=== PATIENT | female | born 1935 | race Caucasian/White ===

== ENCOUNTER 2017-11-21 14:19 | Outpatient (RCR) | payer MEDICARE, MEDICAID ==
[2014-03-09 13:15] VITALS: Wt 84.8 kg
[2017-11-18 14:26] VITALS: BP 164/75
[2017-11-18 14:40] LABS: PLATELET COUNT, AUTOMATED 332 K/uL (150-450)
[~2017-11-21 14:19] MED LIST: ALEN70TA43 PO; CALC600T63 PO; CEPH500T7 PO; CHOL10005 PO; CHOL500045 PO; CYCL1DRO6 OP; HYDR-385 PO; IBAN150T3 PO; LETR2.5T4 PO; PNEI IJ; PNEI IM; PNEU0.5D3 IM; SIMV10TA98 PO; VALS1TAB2 PO
[2017-11-21 14:32] VITALS: BP 151/81
--- NOTE | 2017-11-22 09:40 | ONCOLOGY FOLLOW UP NOTE ---
EVENT DATE: November 21, 2017 DIAGNOSES 1. Left breast cancer. 2. Hypercholesterolemia. 3. Hypertension. 4. Osteopenia. 5. Vitamin D deficiency. CHIEF COMPLAINT The patient is here today for followup of her left breast cancer. ONCOLOGY HISTORY The patient is an 82-year-old postmenopausal woman. PRESENTATION Abnormal mammogram done on February 05, 2014 which showed irregular, shadowing nodule at 12 oclock position of the left breast. DIAGNOSTIC EVALUATION Ultrasound of the left breast done on February 05, 2014 did reveal multiple hypoechoic nodules with change in the nodule at 12 oclock of the left breast. PROCEDURES 1. 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 2. Left breast lumpectomy with left sentinel lymph node biopsy done on February. PATHOLOGY Positive for 0.6 cm diameter well differentiated invasive ductal carcinoma with negative margins. One out of four lymph nodes was positive for involvement of 1 mm. ER/MT positive, HER2/merry negative, by FISH. STAGE Stage IB (BT1B, pN1 mi, cM0.) TREATMENT The patient started adjuvant hormonal therapy with letrozole on March 12, 2014. HISTORY OF PRESENT ILLNESS Patient is here today for followup of her left breast cancer. She is doing fine currently and denies any complaint as usual. PAST MEDICAL HISTORY 1. Hypertension. 2. Hypercholesterolemia. PAST SURGICAL HISTORY 1. Total abdominal hysterectomy with bilateral salpingo-oophorectomy (BSO). 2. Cataract surgery bilaterally. 3. Left breast lumpectomy done on February 23, 2014. FAMILY HISTORY Sister had breast cancer in her 70s. Another sister with brain cancer. Brother with brain cancer. Nephew with metastatic lung cancer. Maternal aunt with breast cancer. SOCIAL HISTORY The patient is a . She has three daughters and one son. She denies any abuse of tobacco, alcohol or drugs. CURRENT MEDICATIONS 1. Calcium carbonate 600 mg tablet twice daily. 2. Letrozole 2.5 mg daily. 3. Valsartan/hydrochlorothiazide 80/12.5 mg once daily. 4. Simvastatin 10 mg at bedtime. 5. Vitamin D3 at 1000 IU daily. 6. Fosamax 70 mg weekly. 7. Restasis eyedrops two times daily. ALLERGIES TETANUS, WHICH CAUSE HIVES AND SWELLING. DIURETICS, WHICH CAN CAUSE COUGH. REVIEW OF SYSTEMS CONSTITUTIONAL: No appetite or weight change. No fever, chills or sweating. No recent infection. HEENT: Ears: No tinnitus or hearing problem. Nose: No nasal discharge or epistaxis. Throat: No sore throat or mouth ulcers. Eyes: No diplopia or visual changes. RESPIRATORY: No shortness of breath. Patient has some dry cough sometime. No expectoration or hemoptysis. CARDIOVASCULAR: No chest pain, orthopnea, or paroxysmal nocturnal dyspnea (PND) . No edema. No palpitations. GASTROINTESTINAL: No nausea or vomiting. No diarrhea or constipation. No change in bowel movements. No heartburn or swallowing difficulties. No abdominal pain. No jaundice. No hematemesis, melena or rectal bleeding. GENITOURINARY: Patient had urinary tract infection treated with antibiotic recently. MUSCULOSKELETAL: No pain in the muscles, joints or bones. NEUROLOGICAL: No tingling or numbness in the hands or feet. No headaches or convulsions. HEMATOLOGIC/LYMPHATIC: No bleeding or easy bruising. No weakness or fatigue. No enlarged lymph nodes. SKIN: No skin rash or lumps. PSYCHIATRIC: No anxiety or depression. PHYSICAL EXAMINATION GENERAL: Looks stable. Well-developed, well-nourished, and in no acute distress. VITAL SIGNS: Blood pressure 151/81, pulse 88 per minute, respirations 16 per minute, temperature 96.5. Pulse ox 93% on room air. HEENT: Head: Atraumatic. No sinus tenderness to palpation. Eyes: No icterus or conjunctivitis. Mouth and throat: No oral thrush or mucositis. NECK: Supple. No cervical or supraclavicular lymphadenopathy. LUNGS: Clear to auscultation and percussion bilaterally. HEART: Regular rate and rhythm. No gallops, murmurs, clicks or rubs. ABDOMEN: Soft and lax. No tenderness. No hepatosplenomegaly. No masses. EXTREMITIES: No cyanosis, clubbing or edema. LYMPHATICS: No peripheral lymphadenopathy. NEUROLOGICAL: Conscious, alert and oriented times three. No focal motor or sensory deficits. PSYCHIATRIC: Mood and affect appear normal. SKIN: No skin rash, bruise or purpuric eruption. DIAGNOSTIC DATA CBC showed a white count of 6.7, hemoglobin 14.4, hematocrit 41.5, platelets 332 ,000. Chem panel totally normal, except sodium 134 and potassium 3, chloride 97 , BUN 21. CA 27-29 is normal at 26. ASSESSMENT 1. Stage IB (pT1b pN1 darlene CM0) left breast invasive ductal carcinoma status post left breast lumpectomy with sentinel lymph node biopsy done February 23, 2014. Tumor was 6 mm well-differentiated invasive ductal carcinoma. One out of four lymph nodes came back positive for 1 mm involvement. ER/MT positive, HER2/ merry negative. Patient started adjuvant hormonal therapy with Letrozole 2.5 mg March 12, 2014. She is doing fine currently and she is totally asymptomatic. As she is nearly four years since her diagnosis, I am planning to see her now every six months. I will continue Letrozole 2.5 mg daily, and I will see her in four months with CBC, chem panel and CA 27-29. 2. Hypokalemia, most probably due to her blood pressure medication which contains hydrochlorothiazide. I am planning to put her on potassium chloride supplement 10 mEq daily, and I advised the patient to contact her primary care for adjustment. 3. Vitamin D deficiency on vitamin D supplement. 4. Osteopenia by DEXA scan, on Fosamax 70 mg weekly. 5. Hypertension, on treatment. PLAN 1. Letrozole 2.5 mg daily. 2. Potassium chloride 10 mEq daily. 3. Patient to contact her primary are, Sonya Moody to follow her potassium and blood pressure medication for adjustment. 4. Patient to return in six months with CBC, chem panel and CA 27-29. 5. Patient is to contact us for any new concerns or complaints. MTDD
[2017-11-27] MEDS ORDERED: POTA20TA10 PO (10:35)
== END 2017-12-11 14:27 | disposition home or self-care (01) ==
LOC: ONC 14:19
PROVIDERS: ATTEND Internal Medicine Hematology
DX: Z08 Encounter for follow-up examination after completed treatment for malignant neoplasm (principal); Z85.3 Personal history of malignant neoplasm of breast; E55.9 Vitamin D deficiency, unspecified; Z92.21 Personal history of antineoplastic chemotherapy; M85.80 Other specified disorders of bone density and structure, unspecified site; I10 Essential (primary) hypertension; E78.00 Pure hypercholesterolemia, unspecified; E87.6 Hypokalemia
CPT/HCPCS: 36415; 85025; 86300; G0463; 82040; 82247; 82310; 82374; 82435; 82565; 82947; 84075; 84132; 84155; 84295; 84450; 84460; 84520; 99212

== ENCOUNTER → 2017-12-11 | Outpatient (CLI) | payer MEDICARE, MEDICAID ==
[2014-03-09 13:15] VITALS: BMI 29.2
[~2017-12-11] MED LIST changes: +POTA20TA10 PO
== END ==
LOC: LAB 09:54
PROVIDERS: ATTEND Nurse Practitioner Family
DX: I10 Essential (primary) hypertension (principal)
CPT/HCPCS: 36415; 82310; 82374; 82435; 82565; 82947; 84132; 84295; 84520

== ENCOUNTER → 2018-01-16 | Outpatient (CLI) | payer MEDICARE, MEDICAID ==
[2014-03-09 13:15] VITALS: BMI 29.2
[~2018-01-16] MED LIST changes: +VALS160T7 PO
[2018-01-16 16:00] LABS: LDL CHOLESTEROL 53 mg/dl
== END ==
LOC: LAB 14:33
PROVIDERS: ATTEND Nurse Practitioner Family
DX: I10 Essential (primary) hypertension (principal); E78.5 Hyperlipidemia, unspecified
CPT/HCPCS: 36415; 82040; 82247; 82310; 82374; 82435; 82465; 82565; 82947; 83718; 84075; 84132; 84155; 84295; 84443; 84450; 84460; 84478; 84520

== ENCOUNTER 2018-05-30 14:26 | Outpatient (RCR) | payer MEDICARE, MEDICAID ==
[2014-03-09 13:15] VITALS: Wt 83.1 kg
[2018-05-23 14:31] VITALS: BP 164/71
[2018-05-23 15:00] LABS: PLATELET COUNT, AUTOMATED 289 K/uL (150-450)
[~2018-05-30 14:26] MED LIST changes: +LOSA50TA74 PO; -VALS160T7 PO; +VALS160T8 PO
[2018-05-30 14:34] VITALS: BP 181/94
--- NOTE | 2018-05-30 18:21 | ONCOLOGY FOLLOW UP NOTE ---
EVENT DATE: May 30, 2018 DIAGNOSES 1. Left breast cancer. 2. Hypercholesterolemia. 3. Hypertension. 4. Osteopenia. 5. Vitamin D deficiency. CHIEF COMPLAINT The patient is here today for followup of her left breast cancer. ONCOLOGY HISTORY The patient is an 82-year-old postmenopausal woman. PRESENTATION Abnormal mammogram done on February 05, 2014, which showed an irregular shadowing nodule at 12 oclock position of the left breast. DIAGNOSTIC EVALUATION Ultrasound of the left breast done on February 05, 2014, did reveal multiple hypoechoic nodules with change in the nodule at 12 oclock of the left breast. PROCEDURES 1. Left breast biopsy done on February 05, 2014 came back positive for well- differentiated invasive ductal carcinoma, ER/RI positive, HER2/merry negative. 2. Left breast lumpectomy with left sentinel lymph node biopsy done on February 23, 2014. PATHOLOGY Positive for 0.6 cm diameter, well-differentiated invasive ductal carcinoma with negative margins. One out of four lymph nodes was positive for involvement of 1 mm. ER/RI positive, HER2/merry negative by FISH. STAGE Stage IB (pT1B, pN1mi, cM0.) TREATMENT The patient started adjuvant hormonal therapy with letrozole on March 12, 2014. HISTORY OF PRESENT ILLNESS Patient is here today for followup of her left breast cancer. She is currently on letrozole for over four years, and she is doing really very well. She is totally asymptomatic. PAST MEDICAL HISTORY 1. Hypertension. 2. Hypercholesterolemia. PAST SURGICAL HISTORY 1. Total abdominal hysterectomy with bilateral salpingo-oophorectomy (BSO). 2. Cataract surgery bilaterally. 3. Left breast lumpectomy done on February 23, 2014. FAMILY HISTORY Sister had breast cancer in her 70s. Another sister with brain cancer. Brother with brain cancer. Nephew with metastatic lung cancer. Maternal aunt with breast cancer. SOCIAL HISTORY The patient is a . She has three daughters and one son. She denies any abuse of tobacco, alcohol, or drugs. CURRENT MEDICATIONS 1. Calcium carbonate 600 mg tablet twice daily. 2. Letrozole 2.5 mg daily. 3. Valsartan/hydrochlorothiazide 80/12.5 mg once daily. 4. Simvastatin 10 mg at bedtime. 5. Vitamin D3 at 1000 IU daily. 6. Fosamax 70 mg weekly. 7. Restasis eye drops two times daily. ALLERGIES TETANUS which causes hives and swelling. DIURETICS which can cause cough. REVIEW OF SYSTEMS CONSTITUTIONAL: No appetite or weight change. No fever, chills, or sweating. No recent infection. HEENT: Ears: No tinnitus or hearing problem. Nose: No nasal discharge or epistaxis. Throat: No sore throat or mouth ulcers. Eyes: No diplopia or visual changes. RESPIRATORY: No shortness of breath. Patient has some dry cough sometimes. No expectoration or hemoptysis. CARDIOVASCULAR: No chest pain, orthopnea, or paroxysmal nocturnal dyspnea (PND). No edema. No palpitations. GASTROINTESTINAL: No nausea or vomiting. No diarrhea or constipation. No change in bowel movements. No heartburn or swallowing difficulties. No abdominal pain. No jaundice. No hematemesis, melena, or rectal bleeding. GENITOURINARY: Patient had urinary tract infection treated with antibiotic recently. MUSCULOSKELETAL: No pain in the muscles, joints, or bones. NEUROLOGICAL: No tingling or numbness in the hands or feet. No headaches or convulsions. HEMATOLOGIC/LYMPHATIC: No bleeding or easy bruising. No weakness or fatigue. No enlarged lymph nodes. SKIN: No skin rash or lumps. PSYCHIATRIC: No anxiety or depression. PHYSICAL EXAMINATION GENERAL: Looks stable. Well developed, well nourished, and in no acute distress. VITAL SIGNS: Blood pressure 181/94, pulse 74 per minute, respirations 16 per minute, temperature 97.3, pulse ox 92% on room air. HEENT: Head: Atraumatic. No sinus tenderness to palpation. Eyes: No icterus or conjunctivitis. Mouth and throat: No oral thrush or mucositis. NECK: Supple. No cervical or supraclavicular lymphadenopathy. LUNGS: Clear to auscultation and percussion bilaterally. HEART: Regular rate and rhythm. No gallops, murmurs, clicks, or rubs. ABDOMEN: Soft and lax. No tenderness. No hepatosplenomegaly. No masses. EXTREMITIES: No cyanosis, clubbing, or edema. LYMPHATICS: No peripheral lymphadenopathy. NEUROLOGICAL: Conscious, alert, and oriented times three. No focal motor or sensory deficits. PSYCHIATRIC: Mood and affect appear normal. SKIN: No skin rash, bruise, or purpuric eruption. DIAGNOSTIC DATA CBC showed white count 6.9, hemoglobin 13.9, hematocrit 40.3, platelets 289,000. Chem panel is totally normal. CA27.29 is normal at 24.2, which is down from 26 last visit. ASSESSMENT 1. Stage IB (pT1b pN1mic cM0) left breast invasive ductal carcinoma, status post left breast lumpectomy with sentinel lymph node biopsy done February 23, 2014. Tumor was 6 mm well-differentiated invasive ductal carcinoma. One out of four lymph nodes came back positive for 1 mm involvement. ER/RI positive, HER2/merry negative. Patient started adjuvant hormonal therapy with letrozole 2.5 mg March 12, 2014. She is doing fine currently and totally asymptomatic. She is over four years since her diagnosis, and I am planning to see her again in six months with CBC, chem panel, and CA27.29. I am planning to continue letrozole for a total of five years. 2. Vitamin D deficiency, on vitamin D supplement. 3. Osteopenia by DEXA scan, currently on Fosamax 70 mg weekly. 4. Hypertension, on treatment with some high blood pressure lately because of the change of her blood pressure medication. Patient is followed by her primary care. PLAN 1. Letrozole 2.5 mg daily. 2. Patient to return in six months with CBC, chem panel, and CA27.29. 3. Patient to contact us for any new concerns or complaints. LEXYD
[2018-06-11] MEDS ORDERED: CEPH-13 PO (16:48)
== END 2018-06-11 09:01 | disposition home or self-care (01) ==
LOC: ONC 14:26
PROVIDERS: ATTEND Internal Medicine Hematology
DX: C50.912 Malignant neoplasm of unspecified site of left female breast (principal); C77.9 Secondary and unspecified malignant neoplasm of lymph node, unspecified; Z17.0 Estrogen receptor positive status [ER+]; Z79.811 Long term (current) use of aromatase inhibitors; E55.9 Vitamin D deficiency, unspecified; M85.80 Other specified disorders of bone density and structure, unspecified site; I10 Essential (primary) hypertension; Z79.899 Other long term (current) drug therapy
CPT/HCPCS: 36415; 85025; 86300; G0463; 82040; 82247; 82310; 82374; 82435; 82565; 82947; 84075; 84132; 84155; 84295; 84450; 84460; 84520; 99212

== ENCOUNTER → 2018-06-11 | Outpatient (CLI) | payer MEDICARE, MEDICAID ==
[2014-03-09 13:15] VITALS: BMI 29.2
[~2018-06-11] MED LIST changes: +CEPH-13 PO
== END ==
LOC: LAB 16:46
PROVIDERS: ATTEND Nurse Practitioner Primary Care
DX: R10.9 Unspecified abdominal pain (principal); N39.0 Urinary tract infection, site not specified
CPT/HCPCS: 81001; 87088

== ENCOUNTER → 2018-06-12 | Outpatient (CLI) | payer MEDICARE, MEDICAID ==
[2014-03-09 13:15] VITALS: BMI 29.2
[~2018-06-12] MED LIST changes: +AMLO-111 PO; +LOSA100T69 PO
--- NOTE | 2018-06-12 15:34 | RADIOLOGY IMAGING REPORT ---
FACILITY: [facility] PATIENT NAME: Darlene Nieto : 1935 MR: [id number] V: [id number] EXAM DATE: ORDERING PHYSICIAN: ANATOLY ACOSTA TECHNOLOGIST: Location: [facility] [place] Patient: Darlene Nieto : 1935 Visit/Account:[id number] Date of Sevice: 06/12/2018 ABDOMEN/PELVIS W/O CONTRAST HISTORY: flank pain TECHNIQUE: Axial images acquired through the abdomen/pelvis. Coronal and sagittal reformatting also performed. No IV contrast administered. Dose Lowering Technique One of the following dose optimization techniques was utilized in the performance of this exam: Autom ated exposure control; adjustment of the mA and/or kV according to the patient's size; or use of an i terative reconstruction technique. Specific details can be referenced in the facility's radiology C T exam operational policy. COMPARISON: CT chest October 15, 2013 FINDINGS: Visualized lung bases: Hepatobiliary: Negative. Spleen: Negative. Adrenals: Negative. Pancreas: Negative. Kidneys ureters and bladder: No evidence of urolithiasis, hydronephrosis or hydroureter. The bladder wall appears mildly thickened Genitalia: Hysterectomy GI: Small hiatal hernia. Diverticulosis of the left-sided colon although no CT evidence of acute di verticulitis Vessels/spaces/nodes: Very mild vascular calcifications throughout the abdomen and pelvis Bones/soft tissues: There is a dextroconvex scoliosis of the lumbar spine with spondylotic changes Additional findings: None pertinent. IMPRESSION: No evidence of urolithiasis, hydronephrosis or hydroureter. Bladder wall appears mildly thickened which could be related to underdistention although urinary trac t infection would be included in the differential diagnosis Small hiatal hernia Diverticulosis left-sided colon although no CT evidence of acute diverticulitis Report Dictated By: Karla Mao MD at 06/12/2018 3:21 PM Report E-Signed By: Karla Mao MD at 06/12/2018 3:31 PM WSN:[email or web address]
== END ==
LOC: CT 10:18
PROVIDERS: ATTEND Nurse Practitioner Family
DX: K44.9 Diaphragmatic hernia without obstruction or gangrene (principal)
CPT/HCPCS: 74176

== ENCOUNTER → 2018-10-27 | Outpatient (CLI) | payer MEDICARE, MEDICAID ==
[2014-03-09 13:15] VITALS: BMI 29.2
[~2018-10-27] MED LIST changes: -AMLO-111 PO; +AMLO-125 PO; -LOSA100T69 PO; +LOSA100T75 PO; -LOSA50TA74 PO; +LOSA50TA80 PO
== END ==
LOC: LAB 14:27
PROVIDERS: ATTEND Nurse Practitioner Family
DX: R10.9 Unspecified abdominal pain (principal)
CPT/HCPCS: 81001

== ENCOUNTER 2018-12-05 16:26 | Outpatient (RCR) | payer MEDICARE, MEDICAID ==
[2014-03-09 13:15] VITALS: Wt 85.0 kg
[2018-11-21 14:37] VITALS: BP 156/69
[2018-11-21 14:52] LABS: PLATELET COUNT, AUTOMATED 325 K/uL (150-450)
[2018-12-05 16:29] VITALS: BP 145/80
--- NOTE | 2018-12-06 04:07 | [facility] ONCOLOGY NOTE ---
EVENT DATE: December 05, 2018 DIAGNOSES 1. Left breast cancer. 2. Hypercholesterolemia. 3. Hypertension. 4. Osteopenia. 5. Vitamin D deficiency. CHIEF COMPLAINT The patient is here today for followup of her left breast cancer. ONCOLOGY HISTORY The patient is an 83-year-old postmenopausal woman. PRESENTATION Abnormal mammogram done on February 05, 2014, which showed an irregular shadowing nodule at 12 oclock position of the left breast. DIAGNOSTIC EVALUATION Ultrasound of the left breast done on February 05, 2014, did reveal multiple hypoechoic nodules with change in the nodule at 12 oclock of the left breast. PROCEDURES 1. Left breast biopsy done on February 05, 2014, came back positive for well- differentiated invasive ductal carcinoma, ER/TN positive, HER2/merry negative. 2. Left breast lumpectomy with left sentinel lymph node biopsy done on February 23, 2014. PATHOLOGY Positive for 0.6 cm diameter, well-differentiated invasive ductal carcinoma with negative margins. One out of four lymph nodes was positive for involvement of 1 mm. ER/TN positive, HER2/merry negative by FISH. STAGE Stage IB (pT1B, pN1mi, cM0.) TREATMENT The patient started adjuvant hormonal therapy with letrozole on March 12, 2014. HISTORY OF PRESENT ILLNESS Patient is here today for followup of her left breast cancer. She is totally asymptomatic, and she is tolerating her treatment with letrozole very well, without any complaint. She is supposed to finish her five years of adjuvant hormonal therapy in three months from now. PAST MEDICAL HISTORY 1. Hypertension. 2. Hypercholesterolemia. PAST SURGICAL HISTORY 1. Total abdominal hysterectomy with bilateral salpingo-oophorectomy (BSO). 2. Cataract surgery bilaterally. 3. Left breast lumpectomy done on February 23, 2014. FAMILY HISTORY Sister had breast cancer in her 70s. Another sister with brain cancer. Brother with brain cancer. Nephew with metastatic lung cancer. Maternal aunt with breast cancer. SOCIAL HISTORY The patient is a . She has three daughters and one son. She denies any abuse of tobacco, alcohol, or drugs. CURRENT MEDICATIONS 1. Calcium carbonate 600 mg tablet twice daily. 2. Letrozole 2.5 mg daily. 3. Valsartan/hydrochlorothiazide 80/12.5 mg once daily. 4. Simvastatin 10 mg at bedtime. 5. Vitamin D3 at 1000 IU daily. 6. Fosamax 70 mg weekly. 7. Restasis eye drops two times daily. ALLERGIES TETANUS which causes hives and swelling. DIURETICS which can cause cough. REVIEW OF SYSTEMS CONSTITUTIONAL: No appetite or weight change. No fever, chills or sweating. No recent infection. HEENT: Ears: No tinnitus or hearing problem. Nose: No nasal discharge or epistaxis. Throat: No sore throat or mouth ulcers. Eyes: No diplopia or visual changes. RESPIRATORY: No shortness of breath. No cough, expectoration or hemoptysis. CARDIOVASCULAR: No chest pain, orthopnea, or paroxysmal nocturnal dyspnea (PND). No edema. No palpitations. GASTROINTESTINAL: No nausea or vomiting. No diarrhea or constipation. No change in bowel movements. No heartburn or swallowing difficulties. No abdominal pain. No jaundice. No hematemesis, melena or rectal bleeding. GENITOURINARY: No hematuria or dysuria. MUSCULOSKELETAL: No pain in the muscles, joints or bones. NEUROLOGICAL: No tingling or numbness in the hands or feet. No headaches or convulsions. HEMATOLOGIC/LYMPHATIC: No bleeding or easy bruising. No weakness or fatigue. No enlarged lymph nodes. SKIN: No skin rash or lumps. PSYCHIATRIC: No anxiety or depression. PHYSICAL EXAMINATION GENERAL: Looks stable. Well-developed, well-nourished, and in no acute distress. VITAL SIGNS: Blood pressure 145/80, pulse 78 per minute, respirations 16 per minute, temperature 97.8, pulse oximetry 93% on room air. HEENT: Head: Atraumatic. No sinus tenderness to palpation. Eyes: No icterus or conjunctivitis. Mouth and throat: No oral thrush or mucositis. NECK: Supple. No cervical or supraclavicular lymphadenopathy. LUNGS: Clear to auscultation and percussion bilaterally. HEART: Regular rate and rhythm. No gallops, murmurs, clicks or rubs. ABDOMEN: Soft and lax. No tenderness. No hepatosplenomegaly. No masses. EXTREMITIES: No cyanosis, clubbing or edema. LYMPHATICS: No peripheral lymphadenopathy. NEUROLOGICAL: Conscious, alert and oriented times three. No focal motor or sensory deficits. PSYCHIATRIC: Mood and affect appear normal. SKIN: No skin rash, bruise or purpuric eruption. DIAGNOSTIC DATA CBC showed white count 6.8, hemoglobin 13.8, hematocrit 41.5, platelets 325,000. Chem panel is totally normal except AST 37. CA 27.29 is 33.3, which is normal, but it is up from 24.2. ASSESSMENT 1. Stage IB (pT1b pN1mic cM0) left breast invasive ductal carcinoma, status post left breast lumpectomy with sentinel lymph node biopsy done February 23, 2014. Tumor was 6 mm well-differentiated invasive ductal carcinoma. One out of four lymph nodes came back positive for 1 mm involvement. ER/TN positive, HER2/merry negative. Patient started adjuvant hormonal therapy with letrozole 2.5 mg March 12, 2014. She is doing fine currently and totally asymptomatic. She is going to finish five years of adjuvant hormonal therapy in three months from now, and I will see her at that time and check her CBC, chem panel, CA 27.29. After that, we will follow her every year. 2. Vitamin D deficiency, on vitamin D supplement. 3. Osteopenia, on Fosamax 70 mg weekly. 4. Hypertension. She is followed by her primary care. PLAN 1. Letrozole 2.5 mg daily. 2. Patient to return in three months with CBC, chem panel, and CA 27.29. 3. Patient to contact us for any new concerns or complaints. LEXYD
[2019-01-14] MEDS ORDERED: LOSA100T75 PO (12:51)
[2019-01-14] MEDS ORDERED: SIMV10TA98 PO (12:51)
[2019-01-14] MEDS ORDERED: AMLO-125 PO (12:51)
== END 2019-02-16 13:01 | disposition home or self-care (01) ==
LOC: ONC 16:26
PROVIDERS: ATTEND Internal Medicine Hematology
DX: C50.912 Malignant neoplasm of unspecified site of left female breast (principal); Z17.0 Estrogen receptor positive status [ER+]; Z79.811 Long term (current) use of aromatase inhibitors; E55.9 Vitamin D deficiency, unspecified; M85.80 Other specified disorders of bone density and structure, unspecified site; I10 Essential (primary) hypertension
CPT/HCPCS: 36415; 85025; 86300; G0463; 82040; 82247; 82310; 82374; 82435; 82565; 82947; 84075; 84132; 84155; 84295; 84450; 84460; 84520; 99212

== ENCOUNTER 2019-03-24 11:23 | Emergency (ER) | payer MEDICARE, MEDICAID ==
[2014-03-09 13:15] VITALS: Wt 83.5 kg
--- NOTE | 2019-03-24 11:39 | ER Report ---
History and Physical Time Seen By MD: 11:37 Hx. of Stated Complaint: weak dizzy HPI/ROS CHIEF COMPLAINT: Weak, dizzy, headache HISTORY OF PRESENT ILLNESS: 83-year-old female patient presents to emergency room with complaint of weakness, dizziness and headache. Patient states she woke up this morning possibly 1:00 with complaint of dizziness. She states that when she moved her head up she felt like entire room was spinning. She states that seemed to last until about 5:00 this morning and seemed to improve. Patient st ates she also had weakness and felt she is not able to move any of her extremities. She states that she fell she get up was not able to. She states that this morning the strength had returned to her extremities. She states she does have some mild weakness, but is able to move her extremities. Patient states she is able to get out of bed and the breakfast this morning. She states she had had some nausea and vomiting during the nighttime, however denies having any diarrhea, chest pain, cough, shortness of breath during that time. Patient states she is not taking any medication for this. REVIEW OF SYSTEMS: Respiratory: No cough, no dyspnea. Cardiovascular: No chest pain, no palpitations. Gastrointestinal: As noted above Musculoskeletal: As noted above Allergies: Coded Allergies: Tetanus Vaccines and Toxoid (Verified Allergy, Unknown, 05/24/17) hydrochlorothiazide (Verified Adverse Reaction, Intermediate, 12/26/17) Hypokalemia and hyponatremia lisinopril (Unverified Adverse Reaction, Mild, 05/24/17) Cough influenza virus vaccine, specific (Unverified Adverse Reaction, Unknown, NAUSEA/VOMITING, 05/24/17) was hospitalized Home Meds Active Scripts Amoxicillin/Pot Clav 875-125 Mg Tab (AUGMENTIN 875-125 TABLET) 1 Each Tablet, 1 TAB PO Q12H, #14 TAB Prov:TE MAC 03/24/19 Losartan Potassium (LOSARTAN POTASSIUM) 100 Mg Tablet, 1 TAB PO QDAY, #90 TAB 3 Refills Prov:ANATOLY ACOSTA APRNP-C 01/14/19 Amlodipine Besylate (AMLODIPINE BESYLATE) 5 Mg Tablet, 1 TAB PO DAILY, #90 TAB 3 Refills Prov:ANATOLY ACOSTA APRNP-C 01/14/19 Simvastatin (SIMVASTATIN) 10 Mg Tablet, 1 TAB PO HS, #90 TAB 3 Refills Prov:ANATOLY ACOSTA DRIVER LICENSE TECHNICIAN SHAFT REPAIRER-C 01/14/19 Reported Medications Alendronate Sodium (FOSAMAX) 70 Mg Tablet, 70 MG PO QWK, TAB 12/17/16 Cyclosporine (RESTASIS) 1 Each Droperette, 1 EACH OP BID 03/30/16 Cholecalciferol (Vitamin D3) (VITAMIN D3) 1,000 Unit Tablet, 1 TAB PO DAILY 07/12/14 Discontinued Scripts Cephalexin (KEFLEX) 500 Mg Capsule, 1 CAP PO Q12H, #14 CAP 0 Refills Prov:ANATOLY ACOSTA ASHOK SHAFT REPAIRER-C 06/11/18 Letrozole (LETROZOLE) 2.5 Mg Tablet, 2.5 MG PO DAILY, #90 TAB 3 Refills Prov:KELSEY BOWER SHAFT REPAIRER-BC, ONC 11/11/17 Past Medical/Surgical History Patient has a past medical history of hyperlipidemia, hypertension, osteopenia elijah. Patient denies any pertinent surgical history. Reviewed Nurses Notes: Yes Hx Smoking: No Smoking Status: Never Smoker Hx Substance Use Disorder: No Hx Alcohol Use: No Constitutional Vital Sign - Last 24 Hours 03/24/19 03/24/19 03/24/19 03/24/19 11:23 11:30 11:32 11:53 Temp 98.8 Pulse 79 89 77 Resp 12 18 B/P (MAP) 162/84 (110) 162/84 Pulse Ox 90 95 93 O2 Delivery Room Air 03/24/19 03/24/19 03/24/19 03/24/19 12:33 12:38 13:00 13:08 Pulse 82 75 Resp 14 B/P (MAP) 153/78 (103) 159/77 (104) Pulse Ox 88 90 O2 Flow Rate 2.0 Physical Exam General Appearance: The patient is alert, has no immediate need for airway protection and no current signs of toxicity. Respiratory: Chest is non tender, lungs are clear to auscultation. Cardiac: regular rate and rhythm Gastrointestinal: Abdomen is soft and non tender, no masses, bowel sounds normal . Musculoskeletal: Neck: Neck is supple and non tender. Extremities have full range of motion and are non tender. Skin: No rashes or lesions. Neuro: Patient is alert and oriented 3, cranial nerves II through XII grossly intact, patient had no marked weakness on exam. Patient is able to complete pronator drift with no difficulties. DIFFERENTIAL DIAGNOSIS: After history and physical exam differential diagnosis was considered for dizziness including but not limited to peripheral and central causes of vertigo, orthostatic causes including dehydration, and blood loss. Medical Decision Making Data Points Result Diagram: 03/24/19 1157 03/24/19 1157 Laboratory Hematology Test 03/24/19 11:57 03/24/19 12:05 Red Blood Count 4.56 M/uL (4.17-5.56) Mean Corpuscular Volume 92.0 fL (80.0-96.0) Mean Corpuscular Hemoglobin 31.6 pg (26.0-33.0) Mean Corpuscular Hemoglobin Concent 34.3 g/dL (32.0-36.0) Red Cell Distribution Width 13.3 % (11.5-14.5) Mean Platelet Volume 8.2 fL (7.2-11.1) Neutrophils (%) (Auto) 71.1 % (39.4-72.5) Lymphocytes (%) (Auto) 21.8 % (17.6-49.6) Monocytes (%) (Auto) 6.5 % (4.1-12.4) Eosinophils (%) (Auto) 0.2 % (0.4-6.7) Basophils (%) (Auto) 0.4 % (0.3-1.4) Nucleated RBC Relative Count (auto) 0.1 /100WBC Neutrophils # (Auto) 5.1 K/uL (2.0-7.4) Lymphocytes # (Auto) 1.6 K/uL (1.3-3.6) Monocytes # (Auto) 0.5 K/uL (0.3-1.0) Eosinophils # (Auto) 0.0 K/uL (0.0-0.5) Basophils # (Auto) 0.0 K/uL (0.0-0.1) Nucleated RBC Absolute Count (auto) 0.00 K/uL Sodium Level 141 mmol/L (137-145) Potassium Level 3.5 mmol/L (3.5-5.0) Chloride Level 106 mmol/L (98-107) Carbon Dioxide Level 25 mmol/L (22-31) Blood Urea Nitrogen 14 mg/dl (7-18) Creatinine 0.80 mg/dl (0.52-1.04) Glomerular Filtration Rate Calc > 60.0 Random Glucose 101 mg/dl (75-110) Calcium Level 9.4 mg/dl (8.4-10.2) Total Bilirubin 0.5 mg/dl (0.2-1.3) Aspartate Amino Transf (AST/SGOT) 26 U/L (0-35) Alanine Aminotransferase (ALT/SGPT) 35 U/L (0-56) Alkaline Phosphatase 78 U/L (0-126) Troponin I < 0.012 ng/ml Total Protein 7.6 g/dl (6.3-8.2) Albumin 4.3 g/dl (3.5-5.0) Urine Color Straw Urine Clarity Clear Urine pH 7.0 pH (4.8-9.5) Urine Specific Jackson 1.005 Urine Protein Negative mg/dL (NEGATIVE) Urine Glucose (UA) Negative mg/dL (NEGATIVE) Urine Ketones Negative mg/dL (NEGATIVE) Urine Blood Small (NEGATIVE) Urine Nitrite Negative (NEGATIVE) Urine Bilirubin Negative (NEGATIVE) Urine Urobilinogen Negative mg/dL (0.2-1.9) Urine Leukocyte Esterase Negative (NEGATIVE) Urine RBC 2 /HPF (0-2/HPF) Urine WBC None /HPF (0-5/HPF) Urine Squamous Epithelial Cells None /LPF (NONE-FEW) Urine Bacteria Negative /HPF (NONE-FEW) Urine Mucus None /HPF (NONE-FEW) Chemistry Test 03/24/19 11:57 03/24/19 12:05 White Blood Count 7.2 k/uL (4.5-11.0) Red Blood Count 4.56 M/uL (4.17-5.56) Hemoglobin 14.4 g/dL (12.0-16.0) Hematocrit 41.9 % (34.0-47.0) Mean Corpuscular Volume 92.0 fL (80.0-96.0) Mean Corpuscular Hemoglobin 31.6 pg (26.0-33.0) Mean Corpuscular Hemoglobin Concent 34.3 g/dL (32.0-36.0) Red Cell Distribution Width 13.3 % (11.5-14.5) Platelet Count 287 K/uL (150-450) Mean Platelet Volume 8.2 fL (7.2-11.1) Neutrophils (%) (Auto) 71.1 % (39.4-72.5) Lymphocytes (%) (Auto) 21.8 % (17.6-49.6) Monocytes (%) (Auto) 6.5 % (4.1-12.4) Eosinophils (%) (Auto) 0.2 % (0.4-6.7) Basophils (%) (Auto) 0.4 % (0.3-1.4) Nucleated RBC Relative Count (auto) 0.1 /100WBC Neutrophils # (Auto) 5.1 K/uL (2.0-7.4) Lymphocytes # (Auto) 1.6 K/uL (1.3-3.6) Monocytes # (Auto) 0.5 K/uL (0.3-1.0) Eosinophils # (Auto) 0.0 K/uL (0.0-0.5) Basophils # (Auto) 0.0 K/uL (0.0-0.1) Nucleated RBC Absolute Count (auto) 0.00 K/uL Glomerular Filtration Rate Calc > 60.0 Calcium Level 9.4 mg/dl (8.4-10.2) Total Bilirubin 0.5 mg/dl (0.2-1.3) Aspartate Amino Transf (AST/SGOT) 26 U/L (0-35) Alanine Aminotransferase (ALT/SGPT) 35 U/L (0-56) Alkaline Phosphatase 78 U/L (0-126) Troponin I < 0.012 ng/ml Total Protein 7.6 g/dl (6.3-8.2) Albumin 4.3 g/dl (3.5-5.0) Urine Color Straw Urine Clarity Clear Urine pH 7.0 pH (4.8-9.5) Urine Specific Jackson 1.005 Urine Protein Negative mg/dL (NEGATIVE) Urine Glucose (UA) Negative mg/dL (NEGATIVE) Urine Ketones Negative mg/dL (NEGATIVE) Urine Blood Small (NEGATIVE) Urine Nitrite Negative (NEGATIVE) Urine Bilirubin Negative (NEGATIVE) Urine Urobilinogen Negative mg/dL (0.2-1.9) Urine Leukocyte Esterase Negative (NEGATIVE) Urine RBC 2 /HPF (0-2/HPF) Urine WBC None /HPF (0-5/HPF) Urine Squamous Epithelial Cells None /LPF (NONE-FEW) Urine Bacteria Negative /HPF (NONE-FEW) Urine Mucus None /HPF (NONE-FEW) Urinalysis Test 03/24/19 12:05 Urine Color Straw Urine Clarity Clear Urine pH 7.0 pH (4.8-9.5) Urine Specific Jackson 1.005 Urine Protein Negative mg/dL (NEGATIVE) Urine Glucose (UA) Negative mg/dL (NEGATIVE) Urine Ketones Negative mg/dL (NEGATIVE) Urine Blood Small (NEGATIVE) Urine Nitrite Negative (NEGATIVE) Urine Bilirubin Negative (NEGATIVE) Urine Urobilinogen Negative mg/dL (0.2-1.9) Urine Leukocyte Esterase Negative (NEGATIVE) Urine RBC 2 /HPF (0-2/HPF) Urine WBC None /HPF (0-5/HPF) Urine Squamous Epithelial Cells None /LPF (NONE-FEW) Urine Bacteria Negative /HPF (NONE-FEW) Urine Mucus None /HPF (NONE-FEW) EKG/Imaging EKG Interpretation 12 lead EKG: Rhythm: normal sinus rhythm with ventricular rate of 82 bpm Immaculata: normal QRS: normal ST segments: normal Imaging CHEST PA LAT INDICATION: dizziness, weakness COMPARISON: None available FINDINGS: Heart size within normal limits. There is no focal infiltrate or lobar consolidation. Scarring is noted at the left lung base. There is no pneumothorax or pleural effusion. IMPRESSION: 1. No acute cardiopulmonary process. Report Dictated By: Ervin Fernando at 03/24/2019 12:52 PM Report E-Signed By: Ervin Fernando at 03/24/2019 12:53 PM EXAMINATION: CT Head without intravenous contrast HISTORY: Weakness. Headache. Dizziness. TECHNIQUE: Axial images were obtained from the skull base to the vertex without intravenous contrast. Sagittal and coronal reformatted images are also submi tted. One of the following dose optimization techniques was utilized in the performance of this exam: Automated exposure control; adjustment of the mA and/or kV according to the patient's size; or use of an iterative reconstruction technique. Specific details can be referenced in the facility's radiology CT exam operational policy. COMPARISON: None available. FINDINGS: Brain volume: Mild generalized volume loss. Ventricles: Negative. Acute ischemic changes: None. Hemorrhage: None. Masses / edema: None. Arriaga-white: Negative. White matter: Patchy hypodensities in the deep white matter bilaterally. Vessels: Calcified plaque in the carotid siphons. Normal density in the dural venous sinuses. Extra-axial: Negative. Calvarium / skull base: Negative. Visualized sinuses / orbits: Moderate mucosal thickening and secretions in the left sphenoid sinus. Leftward nasal septal deviation. IMPRESSION: 1. No acute intracranial abnormality. 2. Moderate chronic white matter disease is nonspecific but most likely represents chronic microvascular ischemia. 3. Moderate mucosal thickening and secretions in the left sphenoid sinus. This may represent acute sinusitis in the appropriate clinical setting. Report Dictated By: Ervin Watkins MD at 03/24/2019 12:41 PM Report E-Signed By: Ervin Watkins MD at 03/24/2019 12:45 PM ED Course/Re-evaluation ED Course Patient was admitted to exam room, history and physical were obtained. Differential diagnoses were considered. On examination lungs are clear, heart is regular, abdomen is soft and nontender. Patient had his able to move without any difficulties, does complain of pain to the head. An IV was started, a CBC, CMP, urinalysis, CT scan of the head, chest x-ray were done. Lab results were unremarkable. EKG showed no acute findings, troponin was undetectable. CT scan of the head shows a sphenoid sinusitis. There are no acute findings of the brain. Chest x-ray showed no acute cardiac from a processes. I did watch the patient get up and walk in the bathroom, she was able to tolerate that well. I believe the patient is off secondary to her sinus infection. We will go ahead and treat her with Augmentin. She is follow-up with primary care provider next week. She is return to emergency room if condition worsens. Patient verbalized understanding and agreement with plan. Decision to Disposition Date: Mar 24, 2019 Decision to Disposition Time: 13:30 Depart Departure Latest Vital Signs Vital Signs Date Time Temp Pulse Resp B/P (MAP) Pulse Ox O2 Delivery O2 Flow Rate FiO2 03/24/19 13:08 75 159/77 (104) 90 03/24/19 13:00 2.0 03/24/19 12:38 14 03/24/19 11:32 98.8 Room Air Impression: Primary Impression: Sinusitis Condition: Improved Disposition: HOME OR SELF-CARE Referrals: ANATOLY ACOSTA APRN SHAFT REPAIRER-C (PCP) New Scripts Amoxicillin/Pot Clav 875-125 Mg Tab (AUGMENTIN 875-125 TABLET) 1 Each Tablet 1 TAB PO Q12H, #14 TAB Prov: TE MAC 03/24/19 Patient Instructions: Sinusitis (ED) Additional Instructions: Increase fluid intake. Get plenty of rest. Follow up with your primary care provider towards the end of this week. Return to the ER if condition worsens. Continue with other medications. Problem Qualifiers Primary Impression: Sinusitis Sinusitis location: sphenoidal Chronicity: acute Recurrence: non- recurrent Qualified Codes: J01.30 - Acute sphenoidal sinusitis, unspecified TE MAC Mar 24, 2019 11:39
[2019-03-24] MEDS ORDERED: NS(*) 0.9% 500 ML BAG 500 ML IV ONE (11:47)
--- NOTE | 2019-03-24 11:59 | EKG ---
FACILITY: [facility] PATIENT NAME: ALIZE BLAND : [id number] MR: [id number] V: [id number] EXAM DATE: ORDERING PHYSICIAN: TE MAC TECHNOLOGIST: WILMA Bob Reason : Blood Pressure : / mmHG Vent. Rate : 082 BPM Atrial Rate : 082 BPM P-R Int : 138 ms QRS Dur : 092 ms QT Int : 388 ms P-R-T Axes : 041 -28 017 degrees QTc Int : 453 ms Normal sinus rhythm Normal ECG When compared with ECG of 23-FEB-2014 12:08, No significant change was found Confirmed by Seamus Isaac ([id number]) on 03/24/2019 4:55:47 PM Referred By: Confirmed By:Seamus Ramos
[2019-03-24 12:12] LABS: PLATELET COUNT, AUTOMATED 287 K/uL (150-450)
--- NOTE | 2019-03-24 12:53 | RADIOLOGY IMAGING REPORT ---
FACILITY: [facility] [place] PATIENT NAME: Darlene Nieto : 1935 MR: [id number] V: [id number] EXAM DATE: ORDERING PHYSICIAN: TE MAC TECHNOLOGIST: Location: [facility] Patient: Darlene Nieto : 1935 Visit/Account:[id number] Date of Sevice: 03/24/2019 EXAMINATION: CT Head without intravenous contrast HISTORY: Weakness. Headache. Dizziness. TECHNIQUE: Axial images were obtained from the skull base to the vertex without intravenous contrast . Sagittal and coronal reformatted images are also submitted. One of the following dose optimization techniques was utilized in the performance of this exam: Autom ated exposure control; adjustment of the mA and/or kV according to the patient's size; or use of an i terative reconstruction technique. Specific details can be referenced in the facility's radiology C T exam operational policy. COMPARISON: None available. FINDINGS: Brain volume: Mild generalized volume loss. Ventricles: Negative. Acute ischemic changes: None. Hemorrhage: None. Masses / edema: None. Arriaga-white: Negative. White matter: Patchy hypodensities in the deep white matter bilaterally. Vessels: Calcified plaque in the carotid siphons. Normal density in the dural venous sinuses. Extra-axial: Negative. Calvarium / skull base: Negative. Visualized sinuses / orbits: Moderate mucosal thickening and secretions in the left sphenoid sinus. Leftward nasal septal deviation. IMPRESSION: 1. No acute intracranial abnormality. 2. Moderate chronic white matter disease is nonspecific but most likely represents chronic microvasc ular ischemia. 3. Moderate mucosal thickening and secretions in the left sphenoid sinus. This may represent acute sinusitis in the appropriate clinical setting. Report Dictated By: Ervin Watkins MD at 03/24/2019 12:41 PM Report E-Signed By: Ervin Watkins MD at 03/24/2019 12:45 PM [id number]
--- NOTE | 2019-03-24 13:01 | RADIOLOGY IMAGING REPORT ---
FACILITY: PATIENT NAME: Darlene Nieto : 1935 MR: [id number] V: [id number] EXAM DATE: ORDERING PHYSICIAN: TE MAC TECHNOLOGIST: Location: [facility] [place] Patient: Darlene Nieto : 1935 Visit/Account:[id number] Date of Sevice: 03/24/2019 CHEST PA LAT INDICATION: dizziness, weakness COMPARISON: None available FINDINGS: Heart size within normal limits. There is no focal infiltrate or lobar consolidation. Scarring is noted at the left lung base. There is no pneumothorax or pleural effusion. IMPRESSION: 1. No acute cardiopulmonary process. Report Dictated By: Ervin Fernando at 03/24/2019 12:52 PM Report E-Signed By: Ervin Fernando at 03/24/2019 12:53 PM WSN:[id number]
[2019-03-24 13:08] VITALS: BP 159/77
[2019-03-24] MEDS ORDERED: AMOX-559 PO (13:31)
== END 2019-03-24 13:48 | disposition home or self-care (01) ==
LOC: ER 11:44
DX: J01.30 Acute sphenoidal sinusitis, unspecified (principal)
CPT/HCPCS: 70450; 71046; 81001; 84484; 85025; 93005; 96360; 99284; A4353; J7040; 82040; 82247; 82310; 82374; 82435; 82565; 82947; 84075; 84132; 84155; 84295; 84450; 84460; 84520